=== PATIENT | male | born 1985 | race Caucasian/White ===

== ENCOUNTER → 2016-05-17 | Outpatient (CLI) | payer OTHER ==
--- NOTE | 2016-05-17 13:54 | DIAGNOSTIC IMAGING REPORT ---
Ultrasound-guided fine-needle aspiration GUIDANCE NEEDLE PLACEMENT CLINICAL HISTORY: L AXILLARY LYMPHADENOPATHY (LUMP L AXILLA) TECHNIQUE: Ultrasound guided left axillary fine-needle aspiration COMPARISON STUDY: 05/06/2016 FINDINGS: Following description of procedure and informed consent, 2 passes with a 25-gauge needle were made under ultrasonic guidance 2 an enlarged left axillary node. Pathology initially indicated adequate specimen. There are no complications. IMPRESSION: Fine-needle aspiration left axillary node. No evidence for complication Electronically signed by: Adolfo Jeter M.D. 05/17/2016 1:52 PM Dictated Date/Time: 05/17/2016 1:38 PM
== END | disposition home or self-care (01) ==
LOC: C.ULTR 12:39
PROVIDERS: ATTEND Family Medicine
DX: R59.0 Localized enlarged lymph nodes (principal)